=== PATIENT | male | born 1960 | race Caucasian/White ===

== ENCOUNTER → 2017-10-02 | Outpatient (CLI) | payer OTHER ==
[~2017-10-02] VITALS: Ht 175.3 cm; Wt 108.9 kg
[~2017-10-02] MED LIST: ASPIRIN325 PO; CRESTOR20 MG PO; MATZIM LA240 MG PO; ZESTORETIC 20-1 EAC3 PO
--- NOTE | ~2017-10-02 | CATHLAB ---
[facility] [address] [place] [address] INVASIVE PROCEDURE REPORT Name: LILIA MEDRANO Room #: [facility] [id number] Admission: 10/02/17 Attend Phys: Tien Tapia MD Discharge: Date of : 64 Date of Service: 10/02/17 1351 Report #: [id number] THIS REPORT FOR: //name// APPROVED REPORT Study performed: 10/02/2017 12:15:51 Patient Details Patient Status: Out-Patient Room #: The patient is a 57 year-old male Event Personnel Tien Tapia Sticker On Procedures Performed Left Heart Cath w/or w/o Coronaries [id number] [facility] Art Access - R femoral artery* [id number] Initial Mod Sed Same Phys/QHP Gr5y [id number] Hemostasis with Manual pressure Indication Positive stress test, Chest pain Risk Factors Hypercholesterolemia, Hypertension Procedure Narrative The patient was brought electively to the Cardiac Catheterization Laboratory and was prepped and draped in a sterile manner. The Right Groin^ was infiltrated with 1% Lidocaine subcutaneous anesthesia. A 4 fr sheath sheath was inserted into the RFA^. Coronary angiography was performed using coronary diagnostic catheters. The right coronary system was accessed and visualized with a JR 4 catheter. The left coronary system was accessed and visualized with a JL 4 catheter. The left ventricle was accessed and visualized with a Pigtail catheter. Left ventricular/Aortic Valve gradient assessed via catheter pullback. Left ventriculogram was performed in GOINS projection. Hemostasis was obtained with manual pressure following sheath removal without any complications. The patient tolerated the procedure well and there were no complications associated with the procedure. There was no hematoma. Intraoperative Conscious Sedation Sedation start time: 12:45 Case end Time: 13:10 [facility] [place] [address] INVASIVE PROCEDURE REPORT Name: LILIA MEDRANO Room #: REG [facility]#: [id number] Admission: 10/02/17 Attend Phys: Tien Tapia MD Discharge: Date of : 64 Date of Service: 10/02/17 1351 Report #: [id number] Fluoro Time: 1.20 minutes Dose: DAP 4254 cGycm2 535 mGy Contrast Type and Amount: Omnipaque 95 ml Coronary Angiography The patient's coronary anatomy is right dominant. Diagnostic Cath Left Main Patent vessel, with no flow-limiting lesions. LAD Moderate size caliber vessel, traveling down the anterior wall. There may be some minimal luminal irregularities in the mid segment. Diagonal 1 Moderate size caliber vessel, with no flow-limiting lesions. Circumflex Supplies to OM vessels. OM1 Moderate size caliber vessel, with mild disease proximally, total less than 20%. OM2 Small-caliber vessel, with no flow-limiting lesions. Right Coronary Dominant vessel, with no flow-limiting lesions. R PDA Patent vessel, with no flow-limiting lesions. RPLV Patent vessel, with no flow-limiting lesions. Left Ventriculography The left ventricle is normal in size with normal contractility. The left ventricular ejection fraction is estimated to be >55%. Hemodynamics The aortic pressure is 125/82 mmHg with a mean of 101 mmHg. The left ventricular pressure is 124/9 mmHg with a mean of mmHg. The left ventricular end diastolic pressure is 22 mmHg. Conclusion 1. 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 2. Normal LV systolic function. 3. Recommend risk factor management. <ELECTRONICALLY SIGNED> By: Tien Tapia MD 10/02/17 1351 1351 1351 Tien Tapia MD /INF
[2017-10-02 10:10] VITALS: BP 131/83
[2017-10-02 10:20] LABS: HEMATOCRIT 45.9 % (42.0-52.0); HEMOGLOBIN 15.7 gm/dL (14.0-18.0); MCH 30.6 pg (26.0-34.0); MCHC 34.1 g/dL (28.0-37.0); MCV 89.7 fL (80.0-100.0); RBC 5.12 mil/uL (4.50-6.00); RDW 12.6 % (10.5-14.5); WBC 5.7 thou/uL (4.0-11.0)
[2017-10-02 10:35] LABS: CALCIUM 9.2 mg/dL (8.5-10.1); POTASSIUM 3.9 mmol/L (3.5-5.1)
== END | disposition home or self-care (01) ==
LOC: CATH 09:38
PROVIDERS: Internal Medicine Cardiovascular Disease
DX: I25.10 Atherosclerotic heart disease of native coronary artery without angina pectoris (principal); I10 Essential (primary) hypertension; E78.00 Pure hypercholesterolemia, unspecified; I48.91 Unspecified atrial fibrillation; Z82.49 Family history of ischemic heart disease and other diseases of the circulatory system; Z79.01 Long term (current) use of anticoagulants; Z98.890 Other specified postprocedural states; Z79.899 Other long term (current) drug therapy; Z88.0 Allergy status to penicillin; Z79.82 Long term (current) use of aspirin